=== PATIENT | female | born 1960 | race Caucasian/White ===

== ENCOUNTER 2020-08-24 08:18 | Emergency (ER) | payer OTHER ==
[~2020-08-24] VITALS: Ht 170.2 cm; Wt 141.5 kg
[2020-08-24 09:15] VITALS: BP 000/00
--- NOTE | 2020-08-24 16:30 | EKG ---
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[place] [facility] [place] 1960 Requested By: Darrell Clemente Order Number: [id number] MD: Dennis Nova Measurements Intervals [place] Rate: 133 P: -24 AK: 232 QRS: -24 QRSD: 171 T: -12 QT: 424 QTc: 631 Interpretive Statements Wide QRS tachycardia which appears to be sinus in origin Occasional PVCs Left atrial enlargement Right bundle branch block No previous ECG available for comparison Electronically Signed On 08-24-2020 16:29:58 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
== END 2020-08-24 09:15 ==
LOC: M.ERS 08:18
DX: I46.9 Cardiac arrest, cause unspecified (principal); Z20.828 Contact with and (suspected) exposure to other viral communicable diseases; E11.9 Type 2 diabetes mellitus without complications; F41.9 Anxiety disorder, unspecified